=== PATIENT | female | born 1985 | race Caucasian/White ===

== ENCOUNTER 2017-11-21 06:00 | Inpatient (IN) | payer OTHER ==
[2017-11-21] MEDS ORDERED: BUTORPHANOL 2 MG INJ IV (07:30)
[2017-11-21] MEDS ORDERED: IBUPROFEN 600 MG TAB PO ×2 (07:30→18:00)
[2017-11-21] MEDS ORDERED: MISOPROSTOL 200 MCG TAB PR ×2 (07:30→14:00)
[2017-11-21] MEDS ORDERED: LIDOCAINE 1% (MPF) 30 ML INJ INJ (07:30)
[2017-11-21] MEDS ORDERED: CARBOPROST 250 MCG INJ IM ×2 (07:30→14:00)
[2017-11-21] MEDS ORDERED: ACETAMINOPHEN/CODEINE #3 TAB PO (07:30)
[2017-11-21] MEDS ORDERED: OXYTOCIN 30 UNITS/LR 500 ML IV ×2 (07:30→14:00)
[2017-11-21 07:45] LABS: ADD MAN DIFF? NO
[2017-11-21] MEDS: LACTATED RINGER'S 1,000 ML IV* ×2 (08:05→10:10)
[2017-11-21 08:06] LABS: BASOPHILS % 0.5 % (0.0-2.0); EOSINOPHILS # 0.1 10^3/ul (0.0-0.5); EOSINOPHILS % 1.1 % (0.0-7.0); HEMATOCRIT 32.7 % (37.0-47.0); HEMOGLOBIN 10.4 g/dl (12.0-16.0); LYMPHOCYTES # 1.8 10^3/ul (0.8-2.9); LYMPHOCYTES % 28.3 % (15.0-51.0); MEAN CORPUSCULAR HEMOGLOBIN 26.3 pg (29.0-33.0); MEAN CORPUSCULAR HGB CONC 31.8 g/dl (32.0-37.0); MEAN CORPUSCULAR VOLUME 82.8 fl (82.0-101.0); MEAN PLATELET VOLUME 11.3 fl (7.4-10.4); MONOCYTE # 0.4 10^3/ul (0.3-0.9); MONOCYTES % 6.9 % (0.0-11.0); NEUTROPHIL # 3.9 10^3/ul (1.6-7.5); NEUTROPHILS % 62.9 % (39.0-77.0); PLATELET COUNT 234 10^3/UL (140-415); RED BLOOD COUNT 3.95 10^6/ul (4.20-5.40); RED CELL DISTRIBUTION WIDTH 13.8 % (11.5-14.5)
[2017-11-21 08:06] LABS: WHITE BLOOD COUNT 6.2 10^3/ul (4.8-10.8)
[2017-11-21] MEDS: AMPICILLIN 1 GM/NS (PMX) 50 ML IV (08:11)
[2017-11-21] MEDS: AMPICILLIN 2 GM/NS (PMX) 100 ML IV (08:11)
[2017-11-21 08:21] LABS: INR 0.94; PARTIAL THROMBOPLASTIN TIME 28.6 Sec (25.0-35.0); PROTIME 12.7 Sec (11.9-14.9)
[2017-11-21 08:47] LABS: HEPATITIS B SURFACE ANTIGEN NEGATIVE (NEGATIVE)
[2017-11-21] MEDS ORDERED: FENTAnyl 2MCG/ML-ROPIV 0.2% 100 ML (08:58)
[2017-11-21] MEDS ORDERED: ONDANSETRON 4 MG INJ IV ×2 (09:30→14:00)
[2017-11-21] MEDS ORDERED: HYDROmorphONE 0.5 MG/0.5 ML SYG IV ×2 (09:30)
[2017-11-21] MEDS ORDERED: ZOLPIDEM 5 MG TAB PO (09:30)
[2017-11-21] MEDS ORDERED: KETOROLAC 30 MG INJ IV (09:30)
[2017-11-21] MEDS ORDERED: DIPHENHYDRAMINE 50 MG INJ IV (09:30)
[2017-11-21] MEDS ORDERED: NALOXONE (0.4 MG/ML) INJ IV (09:30)
[2017-11-21] MEDS ORDERED: FENTAnyl 2MCG/ML-ROPIV 0.2% 100 ML BAG EPI (09:30)
[2017-11-21] MEDS: OXYTOCIN 30 UNITS/LR 500 ML IV ×3 (13:32→18:46)
[2017-11-21] MEDS: METHYLERGONOVINE 0.2 MG INJ IM (13:33)
[2017-11-21] MEDS ORDERED: DIBUCAINE 1% 30 GM OINT PR (14:00)
[2017-11-21] MEDS ORDERED: WITCH HAZEL/GLYCERIN PAD PR (14:00)
[2017-11-21] MEDS ORDERED: SENNA/DOCUSATE NA (8.6MG/50MG) TAB PO (14:00)
[2017-11-21] MEDS ORDERED: NACL 0.9% 3 ML SYG IV (14:00)
[2017-11-21] MEDS ORDERED: METHYLERGONOVINE 0.2 MG INJ IM (14:00)
[2017-11-21] MEDS ORDERED: OXYCODONE/ASPIRIN (4.88/325) TAB PO (14:00)
[2017-11-21] MEDS ORDERED: ACETAMINOPHEN 325 MG TAB PO (14:00)
[2017-11-21] MEDS ORDERED: BENZOCAINE 20% 56 ML SPRAY TOP (14:00)
[2017-11-21 15:11] LABS: RAPID PLASMA REAGIN NONREACTIVE (NR)
[2017-11-21] MEDS: SENNA/DOCUSATE NA (8.6MG/50MG) TAB PO (21:18)
[2017-11-21] MEDS: LANOLIN 7 GM TUBE TOP (21:18)
[2017-11-22 06:44] LABS: ADD MAN DIFF? NO
[2017-11-22 06:48] LABS: BASOPHILS % 0.3 % (0.0-2.0); EOSINOPHILS % 0.5 % (0.0-7.0); HEMATOCRIT 30.3 % (37.0-47.0); HEMOGLOBIN 9.7 g/dl (12.0-16.0); LYMPHOCYTES # 1.8 10^3/ul (0.8-2.9); LYMPHOCYTES % 24.1 % (15.0-51.0); MEAN CORPUSCULAR HEMOGLOBIN 26.4 pg (29.0-33.0); MEAN CORPUSCULAR VOLUME 82.3 fl (82.0-101.0); MEAN PLATELET VOLUME 11.5 fl (7.4-10.4); MONOCYTE # 0.6 10^3/ul (0.3-0.9); MONOCYTES % 8.1 % (0.0-11.0); NEUTROPHILS % 66.6 % (39.0-77.0); PLATELET COUNT 225 10^3/UL (140-415); RED BLOOD COUNT 3.68 10^6/ul (4.20-5.40); RED CELL DISTRIBUTION WIDTH 13.7 % (11.5-14.5)
[2017-11-22 06:48] LABS: WHITE BLOOD COUNT 7.4 10^3/ul (4.8-10.8)
[2017-11-22] MEDS: SENNA/DOCUSATE NA (8.6MG/50MG) TAB PO ×2 (09:20→22:13)
[2017-11-22] MEDS: OXYCODONE/ASPIRIN (4.88/325) TAB PO (17:45)
[2017-11-23] MEDS: SENNA/DOCUSATE NA (8.6MG/50MG) TAB PO (09:44)
[2017-11-24] MEDS ORDERED: IBUPROFEN 600 MG TAB PO (12:00)
== END 2017-11-23 16:05 | disposition home or self-care (01) | DRG 775 ==
LOC: OBT 06:00 → L-D 06:02 → OBT 07:16 → L-D 07:19 → PP1 15:20
PROVIDERS: Obstetrics & Gynecology
PROC: 10E0XZZ Delivery of Products of Conception, External Approach (ICD-10-PCS; principal; 2017-11-21)
DX: O80 Encounter for full-term uncomplicated delivery (principal); Z3A.39 39 weeks gestation of pregnancy; Z37.0 Single live birth
CPT/HCPCS: 62319; 76815; 85025; 85610; 85730; 86592; 86850; 86900; 86901; 87340